=== PATIENT | female | born 1940 | race Caucasian/White ===

== ENCOUNTER 2020-02-10 13:30 | Inpatient (IN) | payer MEDICARE ==
[~2020-02-10] VITALS: Ht 162.5 cm; Wt 90.7 kg
[2020-02-10 13:32] VITALS: BP 77/42
--- NOTE | 2020-02-10 14:17 | NUR ---
PATIENT IS UNCOOPERATIVE AT THIS TIME. CALLING NURSES NAMES AND STATING THAT WE ARE NOT TRYING TO HELP HER. THIS RN OFFERED TO CLEAN UP PATIENT AND PATIENT DENIES WANTING CLEANED UP. PATIENT STATES "I DO NOT WANT TO SEE YOUR FACE AGAIN". PATIENT IS WORRIED ABOUT DOG THAT WAS IN HER CAR WHEN SHE GOT PULLED OVER. WATER CONTROL STATION ENGINEER CALLED POLICE AND THEY WILL KEEP THE DOG UNTIL 1030PM. THIS INFORMATION WAS RELAYED TO PATIENT. WILL CONTINUE TO MONITOR.
[2020-02-10 14:22] LABS: BASO % 0.2 % (0.0-1.0); EOS # 0.1 10*3/uL (0.0-0.4); EOS % 1.4 % (1.0-4.0); HEMATOCRIT 35.1 % (37.0-47.0); LYMPH # 2.3 10*3/uL (1.3-4.4); LYMPH % 27.1 % (27.0-41.0); MEAN CELL VOLUME 88.9 fl (81.0-99.0); MEAN CORPUSCULAR HGB 27.3 pg (27.0-31.0); MEAN CORPUSCULAR HGB CONC 30.8 g/dl (33.0-37.0); MEAN PLATELET VOLUME 10.3 fl (9.6-12.3); MONO # 0.9 10*3/uL (0.1-1.0); MONO % 10.4 % (3.0-9.0); NEUT # 5.2 10*3/uL (2.3-7.9); NEUT % 60.5 % (47.0-73.0); PLATELET COUNT AUTOMATED 406 10*3/uL (130-400); RED BLOOD COUNT 3.95 10*6/uL (4.10-5.10); RED CELL DISTRI WIDTH 15.9 % (0-14.5); WHITE BLOOD COUNT 8.6 10*3/uL (4.8-10.8)
[2020-02-10 14:36] LABS: ACT PARTIAL THROMBO TIME 23.1 SECONDS (20.0-32.1)
[2020-02-10 14:37] LABS: ALBUMIN 3.3 gm/dl (3.1-4.5); ALKALINE PHOSPHATASE 84 U/L (45-117); BUN 18 mg/dl (7-24); CHLORIDE 104 mmol/L (98-107); CREATININE 2.27 mg/dL (0.55-1.02); LIPASE 81 U/L (73-393); SGOT/AST 14 IU/L (3-35); SGPT/ALT 16 U/L (12-78); SODIUM 137 mmol/L (136-145); TOTAL PROTEIN 7.5 gm/dL (6.4-8.2)
[2020-02-10 14:38] VITALS: BP 101/75
[2020-02-10 14:38] LABS: TROPONIN I < 0.015 ng/ml (<0.045)
--- NOTE | 2020-02-10 15:50 | NUR ---
DOCTOR BASURTO STATES PATIENT IS ABLE TO SIGN OUT AMA AT ANY TIME. WILL CONTINUE TO MONITOR.
[2020-02-10 16:23] VITALS: BP 149/52
--- NOTE | 2020-02-10 17:00 | NUR ---
PATIENT IS UNCOOPERATIVE AT THIS TIME. PATIENT STILL WILL NOT LET ANYONE CLEAN HER UP. PATIENT WANTS TO LEAVE BUT DOES NOT HAVE A RIDE HOME.
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
[2020-02-10] MEDS ORDERED: CIPROFLOXACIN250 MG PO (17:53)
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
--- NOTE | 2020-02-10 18:47 | NUR ---
PATIENT LEFT AMA, SISTER OF PATIENT (KARYN) PICKED PATIENT UP.
== END 2020-02-10 21:33 | disposition left against medical advice (07) | DRG 683 ==
LOC: ED 13:30 → EDHOLD 15:11 → 5E 15:11
PROVIDERS: Emergency Medicine; ADMIT Internal Medicine; ATTEND Internal Medicine
DX: N17.9 Acute kidney failure, unspecified (principal); E87.2 Acidosis; I95.9 Hypotension, unspecified; R19.7 Diarrhea, unspecified; D64.9 Anemia, unspecified; D47.3 Essential (hemorrhagic) thrombocythemia; R79.89 Other specified abnormal findings of blood chemistry